=== PATIENT | male | born 1995 | race Caucasian/White ===

== ENCOUNTER 2018-11-23 15:34 | Emergency (ER) | payer OTHER, SELFPAY ==
[2018-11-23 15:35] VITALS: BP 158/87; PULSE 61; RESP 19; TEMP 36.4; O2SAT 100; BMI 22.1
--- NOTE | 2018-11-23 15:45 | RAD_ITS ---
STUDY: X-RAY - LEFT FOOT CLINICAL: Male, 22 years old. Cut foot with chainsaw TECHNIQUE: 3 view(s) of the foot. COMPARISON: None. FINDINGS: A comminuted fracture of the distal lateral aspect of the first metatarsal is present. Adjacent soft tissue injury and swelling. No other fractures are seen. RAD/Foot min 3 Views IMPRESSION: A comminuted fracture of the distal lateral aspect of the first metatarsal is present. Electronically Signed: Kyle Santoro MD at 16:16 EDT Tel , Service support ,
[2018-11-23] MEDS: Morphine 4 MG/ML Syringe IV (16:25)
[2018-11-23] MEDS: Cefazolin 1 GM/50 ML BAG IV (16:36)
--- NOTE | 2018-11-23 18:08 | ED.DCSUM_ITS ---
- ER Visit Summary Date of Service: 11/23/18 Chief Complaint: Cut left foot with chainsaw History of Present Illness: The patient is a [address] covarrubias. He reports that he was cutting through a branch with a chainsaw when it bounced off and hit his left foot. It cut through his boot. He reports that he has a sharp pain is 10 out of 10 with walking or when it is down. 7 out of 10 when he elevates this. He denies any paresthesias in his toes. His tetanus is not up-to-date. Physical Examination: Vitals: Stable. Afebrile. General: Well-nourished and well-developed. Head: Normocephalic atraumatic. Neck: Supple, no lymphadenopathy. No JVD. Nontender. Cardiovascular: Regular rate and rhythm. No murmurs. Respiratory: No respiratory distress. Clear to auscultation bilaterally. Abdominal: Soft, nontender, nondistended, normal bowel sounds. No guarding, rebound, or peritoneal signs. Back: Nontender. Extremities: Medial side of his left foot over the distal third of his first metatarsal there is an 8 cm laceration with bony involvement. He is neurovascular intact distal to this. Skin: Normal color, no rash. Neurologic: Alert and oriented ?3. Cranial nerves II through XII are intact. Normal strength and sensation. Psych: Normal affect. Test Results: Clinical Impression(s) from Imaging Studies Foot X-Ray 11/23/18 15:45 IMPRESSION: A comminuted fracture of the distal lateral aspect of the first metatarsal is present. Electronically Signed: Kyle Santoro MD at 16:16 EDT Tel , Service support , Emergency Department Course and Treatment: Patient had an IV placed he was given morphine and Ancef IV he was given Adacel IM. He is resting more comfortably. Treatment Plan: Patient was discussed with Dr. Huertas. She has come to the emergency department and will wash this out. She asked that cultures be sent from this. The patient will be discharged with Augmentin, Cipro, and [place]. Instructed to follow-up with Dr. Huertas in 2 days for another exam. Return to the emergency department for any worsening symptoms. Disposition: To home in improved and stable condition. Impression: 1. Chainsaw injury left foot. 2. Laceration left foot, 8 cm, repaired by Dr. Huertas. This note was generated with [employer] dictation software. It may contain incorrect words, spelling, and punctuation that were not noted in review of the chart prior to signing ED Disposition - Plan for ED Patient: Instructions: LACERATION, Foot Prescriptions: Amox/Clavulanate Tablet [Augmentin Tablet] 875 mg PO Q12H #14 tablet Ciprofloxacin [Cipro] 500 mg PO BID #14 tablet Hydrocodone Bitart/Apap 5-325 [[place] 5MG-325MG] 1 tablet PO Q4H PRN PRN 2 Days #10 tablet PRN Reason: Pain Referrals: Lexis Huertas DPM [STAFF PHYSICIAN] - 2 Days for wound check
[2018-11-23 18:34] VITALS: BP 134/74; PULSE 45; RESP 16; O2SAT 99
--- NOTE | 2018-11-23 18:40 | DCINST_ITS ---
Discharge Diet: No Restrictions Discharge Activity: May not drive while taking narcotic pain medications., May Not Shower, Use Crutches - keep left splint intact Ice area for (Minutes): 15 - each hour. place behind knee Weight Bearing Status: No weight bearing Keep extremity elevated above heart level: Left Leg Call your doctor if your incision/area has: Continuous Slow Oozing, Sudden Increased Bleeding, Increased Pain/ Swelling, Increased Redness, Foul Smelling Discharge Call your doctor if you observe: Fever of 101 or Higher, Numbness or Tingling, Calf discomfort, Uncontrolled pain Cleanse incision/area with: Keep Dressing Clean & Dry Instructions: LACERATION, Foot Allergies/Adverse Reactions: Allergies No Known Allergies Allergy (Verified 11/23/18 15:35) Medications to take at Discharge Cetirizine HCl [Zyrtec] 10 mg PO DAILY 09/15/15 Amox/Clavulanate Tablet [Augmentin Tablet] 875 mg PO Q12H #14 tab 11/23/18 Ciprofloxacin [Cipro] 500 mg PO BID #14 tab 11/23/18 Hydrocodone Bitart/Apap 5-325 [[place] 5MG-325MG] 1 tab PO Q4H PRN PRN 2 Days #10 tab 11/23/18 The following prescriptions were given: Amox/Clavulanate Tablet [Augmentin Tablet] 875 mg PO Q12H #14 tab Prescription Printed Ciprofloxacin [Cipro] 500 mg PO BID #14 tab Prescription Printed Hydrocodone Bitart/Apap 5-325 [[place] 5MG-325MG] 1 tab PO Q4H PRN PRN 2 Days #10 tab PRN Reason: Pain Prescription Printed Primary Care Physician: Lexis Huertas DPM [STAFF PHYSICIAN] - 2 Days for wound check Test Results: Test results from this visit will be discussed in further detail at your follow- up appointment, if applicable. Proposed Discharge Date: 11/23/18
--- NOTE | 2018-11-23 18:41 | CON.PCM_ITS ---
Problem List (1) Contact with chainsaw as cause of accidental injury Status: Acute (2) Open nondisplaced fracture of first metatarsal bone of left foot Status: Acute Qualifiers: Encounter type: initial encounter Qualified Code(s): S92.315B - Nondisplaced fracture of first metatarsal bone, left foot, initial encounter for open fracture (3) Left foot pain Status: Acute Reason for Consult Date of Consultation: 11/23/18 Reason for Consultation: Open chain saw injury left foot History of Present Illness: The patient is a 22 year old M was seen bedside in the emergency room for a left open chain saw injury. He was cutting some branches off of a tree and the chainsaw came in contact with the foot. At the time of injury, he was wearing a sock and a boot in which the chain saw severed through these layers. He denies other injuries or loss of consciousness. His pain is moderate to severe (10/10). He denies lack of sensation at this time to the toes. He is able to wiggle his toes however is apprehensive due to the pain. He is with his mother. Past Medical History Allergies No Known Allergies Allergy (Verified 11/23/18 15:35) Home Medications: Ambulatory Orders Medication Instructions Recorded Cetirizine HCl [Zyrtec] 10 mg PO DAILY 09/15/15 Amox/Clavulanate Tablet [Augmentin 875 mg PO Q12H #14 tab 11/23/18 Tablet] Ciprofloxacin [Cipro] 500 mg PO BID #14 tab 11/23/18 Hydrocodone Bitart/Apap 5-325 1 tab PO Q4H PRN PRN 2 Days #10 tab 11/23/18 [[place] 5MG-325MG] Smoking Status: Never smoker Review of Systems Constitutional: Denies: Weakness, Fatigue Cardiovascular: Denies: Edema Gastrointestinal: Denies: Nausea Musculoskeletal: Reports: Foot Pain. Denies: Joint swelling, Leg Pain Skin: Reports: Skin Changes, Wounds Neurological: Denies: Numbness Patient Problems: Active and Suspected Problems Contact with chainsaw as cause of accidental injury (Acute) Open nondisplaced fracture of first metatarsal bone of left foot (Acute) Left foot pain (Acute) - Physical Exam General: Alert, Oriented x3, Cooperative HEENT: Atraumatic Extremities: No cyanosis, Capillary Refill Less than 3 Seconds - All digits of the left foot, No Calf Tenderness - Negative Whiteside sign left, Peripheral Pulses Normal - 2 out of 4 PT and DP pulse left foot, - - Hallux and lesser digit plantar flexion noted. Hallux and lesser digit dorsiflexion after local anesthetic was provided. This was compared to the contralateral right lower extremity limb. Bowstringing of the extensor tendon was also visualized when testing the left foot Skin: Ulcer/ Wound - Oblique oriented stellate shaped deep laceration to the dorsal medial left foot measures approximately 5 cm in length with a width of 1 cm and a depth of about 1.3 cm including exposed bone and capsular tissue. There is some outdoor debris and this was irrigated and cleaned. The bone is firm to touch. No necrosis, devitalized tissue, erythema, purulence, streaking, odor, or infection is apparent at this time. No other areas of skin discontinuity are noted. There is no interdigital maceration. The peripheral skin turgor is normal. Musculoskeletal: Tenderness - Pain to palpate open wound and with passive motion of the first metatarsophalangeal joint. Compartments remain soft to palpate to the left foot and limb. No muscle wasting is noted., - - Upon stress test to the first metatarsal, there is no active motion at the fracture site which also appears to be incomplete and radiographic evaluation. This appears to be stable overall Neurological: Sensory exam intact to light touch and pain Psych/Mental Status: Normal Affect, Appropriate Vital Signs Temp Pulse Resp BP Pulse Ox 97.5 F L 45 L 16 134/74 H 99 11/23/18 15:35 11/23/18 18:34 11/23/18 18:34 11/23/18 18:34 11/23/18 18:34 Oxygen Delivery Method Room Air Weight: 64 kg Body Mass Index (BMI) 22.1 Intake and Output for Last 24 Hours 11/21/18 11/22/18 11/23/18 23:59 23:59 23:59 Intake Total 50 / 50 Balance 50 / 50 Assessment/Plan All Active Problems Contact with chainsaw as cause of accidental injury (Acute) Open nondisplaced fracture of first metatarsal bone of left foot (Acute) Left foot pain (Acute) Left foot open first metatarsal fracture, nondisplaced and secondary to chainsaw injury Laceration with wound debris left foot Left foot pain I reviewed and discussed his case today. His diagnostic data was reviewed. X- ray demonstrates an incomplete fracture of the first metatarsal with oblique orientation to medial dorsal bone. This fracture is not complete or intra- articular. It appears to be comminuted. The overall alignment of the first metatarsal is intact. No other fractures or dislocations are noted. There is no soft tissue emphysema or foreign body visualized radiographically. CBC and CMP were reviewed without gross abnormalities. Is noted his vitals remained fairly stable. His tetanus status will be updated while in the emergency room. I discussed the severity of this injury and explained this to be treated as an open fracture. I recommend immediate irrigation and culture followed by antibiotics and close wound care. The preprocedure indication, planned procedure, possible benefits, risks, complications, and anticipated healing time and management were discussed in detail. He understands risks and complications may include but are not limited to the following: Pain, scarring, swelling, chronic pain, allergic reaction, need for further procedures, loss of limb or function, delayed or non-bone or wound healing, infection development. No guarantees were made. I answered all of his questions as well as his mother's questions. Verbal consent was obtained. Next, semi-sterile preparation to the left lower extremity was performed including draping and sterile instruments and gauze use. Chlorhexidine was used to wash the entire left foot excluding the deep wound bed. Copious saline irrigation was performed with 1 L of normal saline. A deep wound culture including soft tissue and bone evaristo was sent to microbiology for additional testing including aerobic, anaerobic, acid-fast, fungal, and MRSA PCR. At this time the tendon integrity was evaluated in which she is able to extend his toe. Pressure was applied to maintain hemostasis and it was noted that there was no pulsatile bleeding. Hemostasis was considered controlled. Deep closure was achieved with minimal 2-0 Vicryl use and the skin was reapproximated in a retention interrupted manner with 3-0 nylon. The laceration repair measurements are as noted. He tolerated this procedure well. A post procedure dressing consisting of Betadine soaked gauze, gauze, Kerlix, abdominal pad, and Leonel wrap was applied. A well-padded posterior mold was applied with the left lower extremity rectus position and secured with Leonel wrap. He was advised to remain nonweightbearing to left lower extremity with the posterior mold and dressing clean, dry, and intact. Crutches were recommended and this was also ordered. A work note was provided I recommend he remains off work at this time. To ice and elevate for pain inflammation management. He is also provided with a [place] prescription for pain management and was advised on safe and proper use. To follow-up at the foot and ankle center this upcoming Wednesday for a wound check. To call the foot and ankle center sooner if he is uncontrolled pain or signs of infection. Patient as well as his mother demonstrate understanding. The contact information was provided. Please not hesitate to call if you have any questions. Thank you for the consultation. Lexis Huertas DPM, [facility] [phone]
[2018-11-23] MEDS: Diphth,Pertuss(Acell),Tet Vac 0.5 ML Vial IM (18:56)
== END 2018-11-23 19:11 | disposition home or self-care (01) ==
PROVIDERS: Emergency Provider Emergency Medicine; Family Provider Pediatrics; PCP Pediatrics
DX: S92.315B Nondisplaced fracture of first metatarsal bone, left foot, initial encounter for open fracture (principal); W29.3XXA Contact with powered garden and outdoor hand tools and machinery, initial encounter; Y93.H2 Activity, gardening and landscaping; Y92.9 Unspecified place or not applicable; Y99.9 Unspecified external cause status; Z23 Encounter for immunization
CPT/HCPCS: 13121; 73630; 87015; 87070; 87075; 87077; 87116; 87186; 87205; 87206; 90471; 90715; 96365; 96375; 99283; J7050; A4216